=== PATIENT | male | born 1985 | race Caucasian/White ===

== ENCOUNTER 2017-09-11 03:04 | Emergency (ER) | payer OTHER, MEDICAID | END 2017-09-11 03:45 | disposition left against medical advice (07) | LOC: M ED 03:45 | DX: Z04.1 Encounter for examination and observation following transport accident (principal); Z87.891 Personal history of nicotine dependence | CPT/HCPCS: 99284 ==

== ENCOUNTER → 2017-10-13 | Outpatient (CLI) | payer SELFPAY | LOC: M OUTALCOH 08:05 | DX: F10.20 Alcohol dependence, uncomplicated (principal) ==

== ENCOUNTER 2017-10-21 14:32 | Outpatient (RCR) | payer SELFPAY | END 2017-11-19 | LOC: M OUTALCOH 14:32 | DX: F10.20 Alcohol dependence, uncomplicated (principal) ==

== ENCOUNTER 2017-11-23 15:00 | Outpatient (RCR) | payer MEDICAID | END 2017-12-19 | LOC: M OUTALCOH 15:00 | DX: F10.20 Alcohol dependence, uncomplicated (principal) ==

== ENCOUNTER 2017-12-30 16:00 | Outpatient (RCR) | payer MEDICAID | END 2018-01-19 | LOC: M OUTALCOH 01-02 09:49 | DX: F10.20 Alcohol dependence, uncomplicated (principal) ==

== ENCOUNTER 2018-01-20 11:40 | Outpatient (RCR) | payer MEDICAID | END 2018-02-18 | LOC: M OUTALCOH 01-23 16:00 | DX: F10.20 Alcohol dependence, uncomplicated (principal) ==

== ENCOUNTER 2018-02-20 10:44 | Outpatient (RCR) | payer MEDICAID | END 2018-03-21 | LOC: M OUTALCOH 03-03 14:00 | DX: F10.20 Alcohol dependence, uncomplicated (principal) ==